=== PATIENT | male | born 1970 | race American Indian/Alaskan Native ===

== ENCOUNTER 2018-04-13 22:40 | Emergency (ER) | payer OTHER ==
[2018-04-13] MEDS ORDERED: ASPIRIN PO ONE (23:30)
[2018-04-13 23:53] LABS: Basophils # (Auto) 0.1 K/mm3 (0.0-0.1); Basophils % (Auto) 1.4 % (0.0-1.8); Eosinophils # (Auto) 0.5 K/mm3 (0.0-0.4); Eosinophils % (Auto) 7.2 % (0.0-4.3); Hematocrit 39.3 % (35.5-45.6); Hemoglobin 13.2 gm/dl (11.8-15.2); Lymphocytes # (Auto) 2.6 K/mm3 (1.2-5.4); Mean Corpuscular HGB Conc 34 % (32-34); Mean Corpuscular Hemoglobin 27 pg (28-32); Mean Corpuscular Volume 79 fl (84-94); Monocytes # (Auto) 0.6 K/mm3 (0.0-0.8); Monocytes % (Auto) 8.1 % (0.0-7.3); Platelet Count 199 K/mm3 (140-440); Red Blood Count 4.99 M/mm3 (3.65-5.03); Red Cell Distribution Width 14.7 % (13.2-15.2)
[2018-04-14 00:12] LABS: BUN/Creatinine Ratio 12; Blood Urea Nitrogen 14 mg/dL (9-20); Calcium 9.8 mg/dL (8.4-10.2); Hemolysis Index 4
[2018-04-14] MEDS ORDERED: TYLENOL ONE (02:30)
[2018-04-14] MEDS ORDERED: ASPIRIN ONE (04:08)
[2018-04-14] MEDS ORDERED: MORPHINE IV ONE (05:33)
[2018-04-14] MEDS ORDERED: ZOFRAN IV ONE (05:35)
--- NOTE | 2018-04-14 07:08 | Emergency Department Report ---
ED Chest Pain HPI - General Chief Complaint: Chest Pain Stated Complaint: HEADACHE, EYE INJURY Time Seen by Provider: 04/14/18 07:08 Source: patient Mode of arrival: Ambulatory Limitations: No Limitations - History of Present Illness Initial Comments: Patient complains of left eye pain and redness which has been ongoing for a week. He also complained of chest pain which has currently resolved. Patient was referred to a crane crew supervisor by his primary doctor for the chest pain but he missed the appointment to see the crane crew supervisor. MD Complaint: chest pain -: Gradual, week(s) (1) Onset: during rest Pain Location: left chest Pain Radiation: none Severity: mild Severity scale (0 -10): 0 Quality: sharp Consistency: intermittent Improves With: nothing Worsens With: nothing re: denies: nausea, vomting, diaphoresis, dyspnea Other Symptoms: denies: cough, fever Treatments Prior to Arrival: none Aspirin use within the Past 7 Days: (0) No - Related Data Home Medications Medication Instructions Recorded Confirmed Last Taken Metformin HCl [Glumetza] 09/22/13 09/22/13 Unknown glyBURIDE [Diabeta] 09/22/13 09/22/13 Unknown Previous Rx's Medication Instructions Recorded Last Taken Type HYDROcodone/ACETAMINOPHEN [Mccloud 1 each PO Q6HR #20 tablet 07/02/14 Unknown Rx 5/325 Tablet] Lansoprazole/Amoxiciln/Clarith 1 each PO BID #1 combo..pkg 07/02/14 Unknown Rx [[facility] Patient Pack] Ondansetron [Zofran] 4 mg PO Q6HR PRN #20 tablet 07/02/14 Unknown Rx HYDROcodone/APAP 5-325 [Mccloud 1 each PO Q6HR PRN #14 tablet 01/12/16 Unknown Rx 5/325] Benzonatate [Tessalon Perles] 100 mg PO Q8HR #14 capsule 08/04/16 Unknown Rx Clindamycin [Clindamycin CAP] 300 mg PO TID #20 capsule 08/04/16 Unknown Rx HYDROcodone/APAP 7.5-325 [Mccloud] 15 ml PO Q4HR PRN #120 ml 08/04/16 Unknown Rx Aspirin [Aspir-Low] 81 mg PO DAILY #30 tablet. 04/14/18 Unknown Rx HYDROcodone/APAP 5-325 [Mccloud 1 each PO BID PRN #10 tablet 04/14/18 Unknown Rx 5/325] Ofloxacin 0.3% [Floxin Otic] 2 drops OS Q6H #1 bottle 04/14/18 Unknown Rx Allergies Allergy/AdvReac Type Severity Reaction Status Date / Time Penicillins Allergy Hives Verified 07/02/14 08:31 Heart Score - HEART Score History: Slightly suspicious EKG: Normal Age: 45-65 Risk factors: 1-2 risk factors Troponin: < normal limit HEART Score: 2 - Critical Actions Critical Actions: 0-3 pts:0.9-1.7%risk of adverse cardiac event.Candidate for discharge ED Review of Systems ROS: Stated complaint: HEADACHE, EYE INJURY Other details as noted in HPI Comment: All other systems reviewed and negative Constitutional: denies: chills, fever Eyes: eye pain, eye discharge, vision change ENT: denies: ear pain, throat pain Respiratory: denies: cough, shortness of breath Cardiovascular: chest pain. denies: palpitations, syncope Endocrine: no symptoms reported Gastrointestinal: denies: abdominal pain, nausea, vomiting, diarrhea Genitourinary: denies: urgency, dysuria Musculoskeletal: denies: back pain, joint swelling Skin: denies: rash, lesions Neurological: denies: headache, weakness, numbness Psychiatric: denies: anxiety, depression Hematological/Lymphatic: denies: easy bleeding, easy bruising ED Past Medical Hx - Past Medical History Hx Diabetes: Yes - Surgical History Additional Surgical History: left arm surgery - Social History Smoking Status: Never Smoker Substance Use Type: Alcohol - Medications Home Medications: Home Medications Medication Instructions Recorded Confirmed Last Taken Type Metformin HCl [Glumetza] 09/22/13 09/22/13 Unknown History glyBURIDE [Diabeta] 09/22/13 09/22/13 Unknown History HYDROcodone/ACETAMINOPHEN [Mccloud 1 each PO Q6HR #20 tablet 07/02/14 Unknown Rx 5/325 Tablet] Lansoprazole/Amoxiciln/Clarith 1 each PO BID #1 combo..pkg 07/02/14 Unknown Rx [[facility] Patient Pack] Ondansetron [Zofran] 4 mg PO Q6HR PRN #20 tablet 07/02/14 Unknown Rx HYDROcodone/APAP 5-325 [Mccloud 1 each PO Q6HR PRN #14 tablet 05/28/16 Unknown Rx 5/325] Benzonatate [Tessalon Perles] 100 mg PO Q8HR #14 capsule 08/04/16 Unknown Rx Clindamycin [Clindamycin CAP] 300 mg PO TID #20 capsule 08/04/16 Unknown Rx HYDROcodone/APAP 7.5-325 [Mccloud] 15 ml PO Q4HR PRN #120 ml 08/04/16 Unknown Rx Aspirin [Aspir-Low] 81 mg PO DAILY #30 tablet. 04/14/18 Unknown Rx HYDROcodone/APAP 5-325 [Mccloud 1 each PO BID PRN #10 tablet 04/14/18 Unknown Rx 5/325] Ofloxacin 0.3% [Floxin Otic] 2 drops OS Q6H #1 bottle 04/14/18 Unknown Rx ED Physical Exam - General Limitations: No Limitations General appearance: alert, in no apparent distress - Head Head exam: Present: atraumatic, normocephalic, normal inspection - Eye Eye exam: Present: PERRL, EOMI, conjunctival injection (Left eye), other ( Fluorescein stain showed left corneal abrasion at the 1 o'clock paistion.) Pupils: Present: normal accommodation - ENT ENT exam: Present: normal exam, normal orophraynx, mucous membranes moist - Neck Neck exam: Present: normal inspection, full ROM. Absent: tenderness - Respiratory Respiratory exam: Present: normal lung sounds bilaterally. Absent: respiratory distress, wheezes, rales, rhonchi, stridor - Cardiovascular Cardiovascular Exam: Present: regular rate, normal rhythm, normal heart sounds - GI/Abdominal GI/Abdominal exam: Present: soft, normal bowel sounds. Absent: distended, tenderness, guarding, rebound - Extremities Exam Extremities exam: Present: normal inspection, full ROM, normal capillary refill. Absent: tenderness - Back Exam Back exam: Present: normal inspection, full ROM - Neurological Exam Neurological exam: Present: alert, oriented X3, CN II-XII intact - Psychiatric Psychiatric exam: Present: normal affect, normal mood - Skin Skin exam: Present: warm, dry, intact, normal color. Absent: rash ED Course Vital Signs 04/13/18 04/14/18 04/14/18 23:02 03:54 04:00 Temperature 99.0 F Pulse Rate 85 75 Respiratory 16 22 Rate Blood Pressure 149/92 130/88 122/82 Blood Pressure [Left] O2 Sat by Pulse 100 98 Oximetry 04/14/18 04/14/18 04/14/18 04:15 04:30 04:45 Temperature Pulse Rate 73 75 67 Respiratory 19 21 23 Rate Blood Pressure 121/82 117/77 116/73 Blood Pressure [Left] O2 Sat by Pulse Oximetry 04/14/18 04/14/18 04/14/18 05:00 05:15 05:30 Temperature Pulse Rate 74 74 76 Respiratory 15 17 9 L Rate Blood Pressure 124/81 122/84 139/87 Blood Pressure [Left] O2 Sat by Pulse 98 Oximetry 04/14/18 04/14/18 04/14/18 05:45 06:00 06:15 Temperature Pulse Rate 75 72 69 Respiratory 15 20 17 Rate Blood Pressure 147/92 142/92 134/92 Blood Pressure [Left] O2 Sat by Pulse 95 97 Oximetry 04/14/18 04/14/18 04/14/18 06:30 06:45 07:00 Temperature Pulse Rate 68 72 70 Respiratory 17 11 L 14 Rate Blood Pressure 133/87 129/79 119/80 Blood Pressure [Left] O2 Sat by Pulse 94 97 97 Oximetry 04/14/18 04/14/18 04/14/18 07:15 07:30 07:45 Temperature Pulse Rate 64 75 73 Respiratory 15 12 14 Rate Blood Pressure 113/80 118/88 129/81 Blood Pressure [Left] O2 Sat by Pulse 100 95 Oximetry 04/14/18 04/14/18 04/14/18 08:00 08:15 11:56 Temperature 97.6 F Pulse Rate 68 66 82 Respiratory 18 13 18 Rate Blood Pressure 129/83 129/82 Blood Pressure 123/80 [Left] O2 Sat by Pulse 98 97 100 Oximetry - Reevaluation(s) Reevaluation #1: 04/14/18 13:21 Patient felt much better after receiving treatment in the emergency room. He promised to follow up with the cardiologists he was referred to. He also promised to follow up with ophthalmology. YANNICK score - Yannick Score Age > 65: (0) No Aspirin use within the Past 7 Days: (0) No 3 or more CAD Risk Factors: (0) No 2 or more Angina events in past 24 hrs: (0) No Known CAD with more than 50% Stenosis: (0) No Elevated Cardiac Markers: (0) No ST Deviation Greater than 0.5mm: (0) No YANNICK Score: 0 ED Medical Decision Making - Lab Data Result diagrams: 04/13/18 23:34 04/13/18 23:34 - EKG Data -: EKG Interpreted by Me EKG shows normal: sinus rhythm Rate: normal (82) - EKG Data When compared to previous EKG there are: previous EKG unavailable Interpretation: normal EKG, other (No STEMI) - Radiology Data Radiology results: report reviewed, image reviewed - Medical Decision Making Left eye pain. Atypical Chest Pain. Headache. Critical care attestation.: If time is entered above; I have spent that time in minutes in the direct care of this critically ill patient, excluding procedure time. ED Disposition Clinical Impression: Atypical chest pain Corneal abrasion, left Qualifiers: Encounter type: initial encounter Qualified Code(s): S05.02XA - Injury of conjunctiva and corneal abrasion without foreign body, left eye, initial encounter Disposition: TO HOME OR SELFCARE Is pt being admited?: No Does the pt Need Aspirin: Yes Condition: Stable Instructions: Chest Pain (ED), Corneal Abrasion (ED) Additional Instructions: Please follow up with the aircraft electronics technical officer Dr. Sears today. Return to the emergency room if her condition worsens. Prescriptions: Aspirin [Aspir-Low] 81 mg PO DAILY #30 tablet. HYDROcodone/APAP 5-325 [Mccloud 5/325] 1 each PO BID PRN #10 tablet PRN Reason: severe pain Ofloxacin 0.3% [Floxin Otic] 2 drops OS Q6H #1 bottle Referrals: PRIMARY CARE, [Primary Care Provider] - 3-5 Days KOMAL SEARS MD [Staff Physician] - 3-5 Days Time of Disposition: 10:28
[2018-04-14] MEDS ORDERED: TETRACAINE 0.5% OU ONE (07:50)
[2018-04-14] MEDS ORDERED: FUL-GLO OP ONE (07:51)
--- NOTE | 2018-04-14 09:04 | XRay Report ---
AP CHEST: HISTORY: chest pain AP view of the chest demonstrates a normal mediastinal and cardiac contour with clear lungs and normal bony and soft tissue structures. IMPRESSION: Unremarkable AP chest. No change since 08/03/16.
--- NOTE | 2018-04-14 09:08 | Cat Scan Report ---
CT HEAD WITHOUT CONTRAST: HISTORY: Headache. TECHNIQUE: Sequential 2.5mm CT images. COMPARISON: 01/11/16. FINDINGS: Cerebral Parenchyma: Within normal limits. Cerebellum: Within normal limits. Brainstem: Within normal limits. Ventricles: Normal. Sella: Normal. Extra-axial spaces: Normal. Basal Cisterns: Normal. Intracranial Hemorrhage: None. Midline Shift: None. Calvarium: Normal. Sinuses: Normal. Mastoid Air Cells: Normal. Visualized Orbits: Normal. IMPRESSION: Cranial CT scan within normal limits.
[2018-04-14] MEDS ORDERED: BOOSTRIX IM ONE (10:43)
[2018-04-14] MEDS ORDERED: OCUFLOX OS ONE (11:30)
[2018-04-14 11:57] VITALS: BP 123/80
== END 2018-04-14 11:56 | disposition home or self-care (01) ==
LOC: ED 22:40
DX: S05.02XA Injury of conjunctiva and corneal abrasion without foreign body, left eye, initial encounter (principal); R07.89 Other chest pain; E11.9 Type 2 diabetes mellitus without complications; Z88.0 Allergy status to penicillin; Z79.899 Other long term (current) drug therapy; X58.XXXA Exposure to other specified factors, initial encounter; Y93.89 Activity, other specified; Y99.8 Other external cause status; Y92.89 Other specified places as the place of occurrence of the external cause
CPT/HCPCS: 36415; 70450; 71045; 80048; 82962; 84484; 85025; 90471; 90715; 93005; 93010; 99285; J2270; J2405